=== PATIENT | male | born 1950 | race American Indian/Alaskan Native ===

== ENCOUNTER 2017-10-14 09:00 | Day surgery (SDC) | payer MEDICARE, OTHER ==
[2017-10-14 09:31] VITALS: BMI 27.1
[2017-10-14] MEDS ORDERED: Lidocaine Hydrochloride 5 ML INJ ONE (11:12)
[2017-10-14] MEDS ORDERED: Propofol 10 mg/ml Inj (20 ML) ONE (11:12)
[2017-10-14 12:17] VITALS: O2SAT 100
[2017-10-14 12:35] VITALS: BP 130/84; PULSE 66; RESP 18; TEMP 97.4
== END 2017-10-14 12:30 | disposition home or self-care (01) ==
LOC: C.ENDO 09:00
PROVIDERS: ATTEND Internal Medicine Gastroenterology
DX: Z12.11 Encounter for screening for malignant neoplasm of colon (principal); D12.5 Benign neoplasm of sigmoid colon; K64.8 Other hemorrhoids
CPT/HCPCS: 45380; 88305; J2704